=== PATIENT | male | born 1955 | race Caucasian/White ===

== ENCOUNTER 2020-10-09 08:10 | Inpatient (IN) | payer OTHER ==
[~2020-10-09] VITALS: Ht 175.3 cm; Wt 119.7 kg
[2020-10-26 08:17] LABS: HEMATOCRIT 44.6 % (42.0-52.0); MEAN CELL VOLUME 86 fl (80.0-100.0); MEAN CORPUSCULAR HEMOGLOBIN 29 pg (27.0-31.0); MEAN CORPUSCULAR HGB CONC 34 g/dl (33.0-37.0); MEAN PLATELET VOLUME 10.4 fl (7.4-10.4); PLATELET COUNT 241 K/mm3 (130-400); RED BLOOD COUNT 5.19 M/mm3 (4.20-5.60); REDCELL DISTRIBUTION WIDTH-CV 13.1 % (11.5-14.5)
[2020-10-26 08:34] LABS: ALBUMIN 4.4 gm/dL (3.5-5.0); BILIRUBIN,TOTAL 0.4 mg/dL (0.0-1.0); CALCIUM 9.9 mg/dL (8.4-10.2); CREATININE, serum 0.72 (0.66-1.25); POTASSIUM 4.5 mmol/L (3.4-5.0); TOTAL PROTEIN 7.5 gm/dL (6.4-8.2)
[2020-10-27] VITALS (11 sets, daily range): BP systolic 102–159; BP diastolic 57–82; PULSE 92–103; TEMP 97.6–98.7
[2020-10-27] MEDS ORDERED: PRIL40 PO (05:58)
[2020-10-27] MEDS ORDERED: ASPIRIN E.C. 8181 MG PO (05:58)
[2020-10-27] MEDS ORDERED: GLUCOPHAGE XR500 M1 PO (05:59)
[2020-10-27] MEDS ORDERED: TRULICITY0.75 MG/0. SQ (05:59)
[2020-10-27] MEDS ORDERED: CRESTOR40 MG PO (05:59)
[2020-10-27] MEDS ORDERED: INSULIN AS100 UNIT/3 SQ (06:00)
[2020-10-27] MEDS ORDERED: LANTUS100 U/ML SQ (06:00)
[2020-10-27] MEDS ORDERED: FLONASEALLERGY NS (06:01)
[2020-10-27] MEDS ORDERED: COLACE 100100 MG/CAP PO (06:01)
[2020-10-27] MEDS ORDERED: CALCIUM CARBON500 M1 PO (06:02)
[2020-10-27] MEDS ORDERED: MAG-OX 400400 MG/TAB PO (06:03)
--- NOTE | 2020-10-27 06:20 | NUR ---
The patient ambulated back to [place] [address] independently using a steady gait and appeared to tolerate the activity well. Vital signs obtained. Consent signed. 18G IV started left hand with one stick, LR infusing without difficulty. Heart Reg. Lungs clear. Bowel sounds audible. Call light is within reach. brought back to be at his bedside. Will continue to monitor the patient.
--- NOTE | 2020-10-27 11:20 | NUR ---
Patient up from OR. Drowsy and arouses to voice and touch. Lap sites x 6 with edges well approximated. Diaz to DD with clear pink urine present. Post op VSS. Post op Fluids infusing per orders. Patient on oxygen via [employer]. Denies needs at this time
--- NOTE | 2020-10-27 13:59 | NUR ---
Patient still sleepy post op. Spouse at bedside. Denies needs at this time.
--- NOTE | 2020-10-27 15:40 | NUR ---
Patient called out to nurses station states he is having nausea, medications given per orders.
--- NOTE | 2020-10-27 17:24 | NUR ---
Patient up ambulating in halls with SBA, steady gait.
--- NOTE | 2020-10-27 18:15 | NUR ---
Patient doing well, has been up ambulating in halls. Fluids infusing per orders. Diaz to DD with maroon colored urine present, encouraged increase fluid intake. Denies pain at this time. Will report off to nurse leader.
--- NOTE | 2020-10-28 05:32 | NUR ---
Patient did well throughout the shift. Had some nausea last night. Patient believes the toradol is causing nausea and does not want it. Patient's pain has been controlled and his nausea is better this morning. 6 lap sites to patient's abdomen. Diaz draining dark maroon urine. Some clots noted.
[2020-10-28 05:54] VITALS: BP 155/71; PULSE 92; TEMP 98
[2020-10-28 06:35] LABS: HEMATOCRIT 39.6 % (42.0-52.0); HEMOGLOBIN 13.1 g/dl (13.5-18.0)
[2020-10-28 06:45] LABS: CALCIUM 8.3 mg/dL (8.4-10.2); CREATININE, serum 0.79 (0.66-1.25)
--- NOTE | 2020-10-28 07:01 | NUR ---
Pt doing well this morning. He has been up walking in the halls. He reports wanting some soup for breakfast. Kitchen called. Output is dark in color. No other needs requested, will continue to monitor
[2020-10-28 08:00] VITALS: BP 153/81; PULSE 103; TEMP 98.4
--- NOTE | 2020-10-28 10:12 | NUR ---
LUPILLO met with the patient to discuss discharge plan. The patient lives in [place] with his , Lilia (ph#[phone]). He reports independence with ADLs and does not have any DME. The patient's PCP is Dr. Kent with the [facility]. He receives his [facility] through the [facility]. He reports no difficulties obtaining his meds. The patient is not sure if he has a DPOA-HC, but states that he does have a General DPOA designating his . The patient plans to return home with his upon discharge. No additional needs at this time.
--- NOTE | 2020-10-28 10:30 | NUR ---
Reviewed catheter care with patient as well as switching over to leg bag
--- NOTE | 2020-10-28 10:45 | NUR ---
Initial visit; Patient thanked [employer] for looking in on him and offering God's blessings and keeping him in [employer]'s prayers.
--- NOTE | 2020-10-28 11:12 | NUR ---
Pt continues to do well. 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 It is more pale yellow. Fluids to INT. Ambulated patient and he did well. Some pain complaints at the tip of his penis, otherwise reports feeling great.
[2020-10-28 11:16] VITALS: BP 145/80; PULSE 99; TEMP 98.4
--- NOTE | 2020-10-28 12:49 | NUR ---
Dr Mosley has been in to see patient. He is doing well and is ready for discharge. Reviewed catheter care, changing from dependent bag to leg bag, stat lock and drainage. Also reviewed all other discharge instructions with patient and his .
--- NOTE | 2020-10-28 13:02 | NUR ---
Pt escorted out at this time
== END 2020-10-28 13:03 | disposition home or self-care (01) | DRG 708 ==
LOC: INPTSU 10-27 05:34 → SURG 10-27 07:30
PROVIDERS: ADMIT Urology
PROC: 07BC3ZZ Excision of Pelvis Lymphatic, Percutaneous Approach (ICD-10-PCS; 2020-10-27)
PROC: 8E0W4CZ Robotic Assisted Procedure of Trunk Region, Percutaneous Endoscopic Approach (ICD-10-PCS; 2020-10-27)
PROC: 0VT04ZZ Resection of Prostate, Percutaneous Endoscopic Approach (ICD-10-PCS; principal; 2020-10-27 07:30)
DX: C61 Malignant neoplasm of prostate (principal); N40.0 Benign prostatic hyperplasia without lower urinary tract symptoms; E66.01 Morbid (severe) obesity due to excess calories; E78.5 Hyperlipidemia, unspecified; K21.9 Gastro-esophageal reflux disease without esophagitis; E78.00 Pure hypercholesterolemia, unspecified; E61.2 Magnesium deficiency; E11.9 Type 2 diabetes mellitus without complications; M19.90 Unspecified osteoarthritis, unspecified site; Z20.828 Contact with and (suspected) exposure to other viral communicable diseases; Z90.89 Acquired absence of other organs; Z90.49 Acquired absence of other specified parts of digestive tract
CPT/HCPCS: A4314; A9284; J0690; J1170; J1815; J1885; J2405; J2704; J3010; J7120